=== PATIENT | female | born 1960 | race Two or more races ===

== ENCOUNTER → 2022-01-20 | Day surgery (SDC) | payer OTHER | END | disposition home or self-care (01) | LOC: ADM 01-17 14:15 → AMB-ENDOS 07:28 | PROVIDERS: ATTEND Surgery | DX: D12.7 Benign neoplasm of rectosigmoid junction (principal); D12.2 Benign neoplasm of ascending colon; D12.4 Benign neoplasm of descending colon; D12.3 Benign neoplasm of transverse colon; K57.30 Diverticulosis of large intestine without perforation or abscess without bleeding; K59.09 Other constipation; Z86.010 Personal history of colon polyps ==